=== PATIENT | female | born 1950 | race Caucasian/White ===

== ENCOUNTER → 2017-01-28 | Outpatient (CLI) | payer MEDICARE, OTHER | LOC: KOH-I 10:41 | DX: R06.02 Shortness of breath (principal) | CPT/HCPCS: 71020 ==

== ENCOUNTER → 2017-01-31 | Outpatient (CLI) | payer MEDICARE, OTHER | LOC: ECHO 12:30 | DX: R00.2 Palpitations (principal); I51.7 Cardiomegaly | CPT/HCPCS: ECHO; 93306 ==

== ENCOUNTER → 2021-07-07 | Outpatient (CLI) | payer OTHER | LOC: KOH-I 12:10 | DX: M25.561 Pain in right knee (principal); M25.562 Pain in left knee; M54.5 Low back pain; M47.812 Spondylosis without myelopathy or radiculopathy, cervical region; M17.12 Unilateral primary osteoarthritis, left knee | CPT/HCPCS: 72100; 73562 ==

== ENCOUNTER 2022-07-12 13:16 | Emergency (ER) | payer OTHER ==
[2022-07-12 13:42] LABS: RED BLOOD COUNT 4.69 M/UL (4.00-5.10); WHITE BLOOD COUNT 10.4 K/UL (4.5-11.0)
[2022-07-12] MEDS ORDERED: AMOX TR-K CLV1 EAC4 PO (18:02)
== END 2022-07-12 17:30 | disposition home or self-care (01) ==
LOC: ER1 13:16
PROVIDERS: Student in an Organized Health Care Education/Training Program
DX: J44.0 Chronic obstructive pulmonary disease with (acute) lower respiratory infection (principal); J18.9 Pneumonia, unspecified organism; I10 Essential (primary) hypertension; E11.9 Type 2 diabetes mellitus without complications; Z88.1 Allergy status to other antibiotic agents
CPT/HCPCS: 71045; 80053; 82550; 82553; 84484; 85025; 93005; 99285

== ENCOUNTER → 2022-08-10 | Outpatient (CLI) | payer OTHER ==
[~2022-08-10] MED LIST: AMOX TR-K CLV1 EAC4 PO
== END ==
LOC: KOH-I 14:24
DX: R42 Dizziness and giddiness (principal)
CPT/HCPCS: 70551